=== PATIENT | female | born 1990 | race African-American/Black ===

== ENCOUNTER 2016-08-28 15:25 | Emergency (ER) | payer MEDICAID ==
[~2016-08-28] VITALS: Ht 167.6 cm; Wt 60.5 kg
[2016-08-28] MEDS ORDERED: SODIUM CHLORIDE FLUSH 10ML SYR IVF ONE (16:00)
[2016-08-28 16:24] LABS: ASPARTATE AMINO TRANSFERASE 21 U/L (15-37); BLOOD UREA NITROGEN 10 mg/dL (7-18)
[2016-08-28 16:49] LABS: HCG UR OBC PASS
[2016-08-28 16:51] LABS: PATH.CAST-FLAG NOT PRESENT; SPERM-FLAG NOT PRESENT; SRC-FLAG NOT PRESENT; XTAL-FLAG NOT PRESENT; YLC-FLAG NOT PRESENT
[2016-08-28 16:55] VITALS: BP 107/77
== END 2016-08-28 17:58 | disposition home or self-care (01) ==
LOC: ED 15:49
DX: K80.20 Calculus of gallbladder without cholecystitis without obstruction (principal); R10.84 Generalized abdominal pain
CPT/HCPCS: 36415; 76700; 80053; 81001; 81025; 83690; 85025; 87086; 99285

== ENCOUNTER 2016-09-22 11:43 | Day surgery (SDC) | payer MEDICAID ==
[~2016-09-22] VITALS: Ht 167.6 cm; Wt 60.9 kg
[~2016-09-22 11:43] MED LIST: CEFAZOLIN 1,000 MG ONE; DEXAMETHASONE 4 MG/ML, 1ML ONE; GLYCOPYRROLATE 0.2MG/1ML ONE; IBUP200T5 PO; KETOROLAC 30 MG/1 ML ONE; NEOSTIGMINE 1 MG/ML, 10ML ONE; ONDANSETRON 2MG/ML, 2ML ONE; PROPOFOL 10 MG/ML, 20ML ONE; ROCURONIUM 10 MG/ML ONE
[2016-09-22 12:32] VITALS: BP 111/76
[2016-09-22 12:41] LABS: HCG UR OBC PASS
[2016-09-22] MEDS ORDERED: LACTATED RINGERS 1,000 ML IV SCH (12:46)
[2016-09-22] MEDS ORDERED: INDOCYANINE GREEN 25 MG VIAL ONE (13:03)
[2016-09-22] MEDS ORDERED: BUPIVACAINE/PF-EPI 0.5% 1:200K ONE (13:17)
[2016-09-22] MEDS ORDERED: MIDAZOLAM 1 MG/ML, 2ML ONE (13:22)
[2016-09-22] MEDS ORDERED: FENTANYL PF 250 MCG/5ML ONE (13:22)
[2016-09-22] MEDS ORDERED: INDOCYANINE GREEN 25 MG VIAL IVPush ONE (13:30)
[2016-09-22] MEDS ORDERED: METOPROLOL 1 MG/ML, 5ML IV PRN (14:00)
[2016-09-22] MEDS ORDERED: hydrALAzine 20 MG/ML, 1ML IV PRN (14:00)
[2016-09-22] MEDS ORDERED: ALBUTEROL SULFATE 2.5 MG/3 ML NPPB PRN (14:00)
[2016-09-22] MEDS ORDERED: ONDANSETRON 2MG/ML, 2ML IVPush PRN ×2 (14:00→15:00)
[2016-09-22] MEDS ORDERED: EPHEDRINE 50 MG/ML, 1ML IVPush PRN (14:00)
[2016-09-22] MEDS ORDERED: ACETAMINOPHEN 325 MG TABLET PO PRN (14:00)
[2016-09-22] MEDS ORDERED: LABETALOL 5MG/ML, 20ML IV PRN (14:00)
[2016-09-22] MEDS ORDERED: MEPERIDINE/PF 25MG/0.5ML IVPush PRN (14:00)
[2016-09-22] MEDS ORDERED: KETOROLAC 30 MG/1 ML IVPush PRN (15:00)
[2016-09-22] MEDS ORDERED: morphine SULFATE 10 MG/ML, 1ML IVPush PRN (15:00)
[2016-09-22] MEDS ORDERED: FENTANYL PF 100 MCG/2ML ONE (15:02)
[2016-09-22] MEDS ORDERED: OXYcodone 5 MG/5 ML ORAL.SOL UDC ONE ×2 (15:02→15:51)
[2016-09-22] MEDS: FENTANYL PF 100 MCG/2ML IV PRN ×2 (15:04→15:09)
[2016-09-22] MEDS: OXYcodone 5 MG/5 ML ORAL.SOL UDC PO PRN ×2 (15:07→15:52)
[2016-09-22] MEDS ORDERED: HYDROmorphone 1 MG/ML, 1ML ONE (15:23)
[2016-09-22] MEDS: HYDROmorphone 1 MG/ML, 1ML IV PRN ×2 (15:26→15:34)
[2016-09-22] MEDS ORDERED: ACETAMINOPHEN 325 MG TABLET ONE (16:07)
[2016-09-22] MEDS ORDERED: ACETAMINOPHEN 650 MG/20.3 ML UDC ONE (16:07)
== END 2016-09-22 18:20 | disposition home or self-care (01) ==
LOC: OUT 11:43
PROVIDERS: ATTEND Surgery
DX: K80.10 Calculus of gallbladder with chronic cholecystitis without obstruction (principal)
CPT/HCPCS: 47562; 81025; 88304; J0690; J1100; J1170; J1885; J2250; J2405; J2704; J2710; J3010; J3490; J7120; S2900

== ENCOUNTER 2018-01-27 11:52 | Emergency (ER) | payer MEDICAID ==
[~2018-01-27] VITALS: Ht 167.6 cm; Wt 63.3 kg
[~2018-01-27 11:52] MED LIST changes: -CEFAZOLIN 1,000 MG ONE; -DEXAMETHASONE 4 MG/ML, 1ML ONE; -GLYCOPYRROLATE 0.2MG/1ML ONE; +IBUP-1484 PO; -IBUP200T5 PO; -KETOROLAC 30 MG/1 ML ONE; -NEOSTIGMINE 1 MG/ML, 10ML ONE; -ONDANSETRON 2MG/ML, 2ML ONE; -PROPOFOL 10 MG/ML, 20ML ONE; -ROCURONIUM 10 MG/ML ONE
[2018-01-27] MEDS ORDERED: TRAZ-136 PO (13:19)
[2018-01-27 14:03] VITALS: BP 110/76
== END 2018-01-27 14:05 | disposition home or self-care (01) ==
LOC: ED 13:45
DX: R07.89 Other chest pain (principal); F41.1 Generalized anxiety disorder; F32.9 Major depressive disorder, single episode, unspecified
CPT/HCPCS: 71045; 93005; 99284

== ENCOUNTER 2018-03-27 06:22 | Emergency (ER) | payer MEDICAID ==
[~2018-03-27] VITALS: Ht 160 cm; Wt 63.0 kg
[~2018-03-27 06:22] MED LIST changes: +TRAZ-136 PO
[2018-03-27 06:25] VITALS: BP 101/58
[2018-03-27] MEDS ORDERED: ONDANSETRON ODT 4 MG ONE (06:43)
[2018-03-27] MEDS ORDERED: IBUPROFEN 200 MG TABLET ONE (06:44)
[2018-03-27] MEDS ORDERED: ACETAMINOPHEN 325 MG TABLET ONE (06:44)
[2018-03-27] MEDS ORDERED: ACETAMINOPHEN 325 MG TABLET PO ONE (07:00)
[2018-03-27] MEDS ORDERED: IBUPROFEN 200 MG TABLET PO ONE (07:00)
[2018-03-27] MEDS ORDERED: ONDANSETRON ODT 4 MG PO ONE (07:00)
[2018-03-27 07:22] LABS: RAPID INFLUENZA A Negative (Negative); RAPID INFLUENZA B Negative (Negative)
== END 2018-03-27 07:44 | disposition home or self-care (01) ==
LOC: ED 07:37
DX: B34.9 Viral infection, unspecified (principal); F32.9 Major depressive disorder, single episode, unspecified
CPT/HCPCS: 87400; 99284; Q0162

== ENCOUNTER 2019-05-20 18:27 | Emergency (ER) | payer MEDICAID, OTHER ==
[~2019-05-20] VITALS: Ht 167.6 cm; Wt 69.3 kg
[~2019-05-20 18:27] MED LIST changes: -IBUP-1484 PO; +IBUP-1902 PO; -TRAZ-136 PO; +TRAZ50TA66 PO
[2019-05-20 18:44] VITALS: BP 136/104
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
--- NOTE | 2019-05-20 19:36 | NUR ---
PT C/O NAUSEA, CONSTIPATION, LOSS OF APPETITE OVER LAST COUPLE WEEKS. PT HAD IMPLANTED CONTROL REMOVED TWO WEEKS AGO FOR IT NOT MAKING HER FEEL GOOD. CONTROL IN PLACE FOR 3 YEARS. CONNECTED TO MONITORING. CALL LIGHT IN REACH. MD AT BEDSIDE FOR ASSESSMENT.
--- NOTE | 2019-05-20 19:52 | NUR ---
PT AMBULATED TO RESTROOM WITH STEADY GAIT TO PROVIDE URINE SAMPLE. UA COLLECTED AND SENT TO LAB.
[2019-05-20 20:00] LABS: MICROSCOPIC NOT IND
[2019-05-20 20:05] LABS: CULTURE INDICATED? NO
[2019-05-20 20:13] LABS: MEAN CORPUSCULAR HEMOGLOBIN 29.9 pg (27.0-34.8); MEAN CORPUSCULAR HGB CONC 33.1 g/dL (32.4-35.8); MEAN CORPUSCULAR VOLUME 90.2 fL (80-100); MEAN PLATELET VOLUME 8.9 fL (7.4-10.4); PLATELET COUNT 168 x10^3/uL (130-400); RED BLOOD COUNT 4.53 x10^6/uL (3.82-5.3); RED CELL DISTRIBUTION WIDTH 13.3 % (9.6-15.2)
[2019-05-20 20:17] LABS: ALANINE AMINOTRANSFERASE 32 U/L (12-78); ALBUMIN 2.9 g/dL (3.4-5.0); ANION GAP 7 mmol/L (5-15); CALCIUM 8.8 mg/dL (8.5-10.1); CHLORIDE 109 mmol/L (98-107); CREATININE 0.85 mg/dL (0.55-1.02)
[2019-05-20 20:28] LABS: ALKALINE PHOSPHATASE 76 U/L (45-117); BASOPHILS # (AUTO) 0.02 x10^3/uL (0-0.1); BASOPHILS % (AUTO) 0 % (0-1); BILIRUBIN,TOTAL 0.5 mg/dL (0.2-1.0); EOSINOPHILS # (AUTO) 0.17 x10^3/uL (0-0.4); EOSINOPHILS % (AUTO) 3 % (1-7); FREE T4 (FREE THYROXINE) 1.17 ng/dL (0.76-1.46); LYMPHOCYTES # (AUTO) 1.44 x10^3/uL (1-3.4); LYMPHOCYTES % (AUTO) 23 % (22-44); MD SCAN; MONOCYTES % (AUTO) 11 % (2-9); NEUTROPHILS # (AUTO) 3.82 x10^3/uL (1.8-6.8); NEUTROPHILS % (AUTO) 62 % (42-75); TOTAL PROTEIN 6.6 g/dL (6.4-8.2)
--- NOTE | 2019-05-20 20:38 | NUR ---
ALL RESULTS ARE BACK AT THIS TIME. CHART UP FOR RECHECK.
== END 2019-05-20 22:12 | disposition home or self-care (01) ==
LOC: ED 20:56
DX: G47.00 Insomnia, unspecified (principal); R11.0 Nausea; Z90.49 Acquired absence of other specified parts of digestive tract
CPT/HCPCS: 36415; 80053; 81003; 81025; 84439; 84443; 85025; 99283

== ENCOUNTER 2019-11-26 12:38 | Emergency (ER) | payer MEDICAID ==
[~2019-11-26] VITALS: Ht 167.6 cm; Wt 68.9 kg
--- NOTE | 2019-11-26 13:06 | NUR ---
Assumed care of patient. C/O anxiety x 5 days. Will continue to monitor.
[2019-11-26] MEDS ORDERED: LORazepam 1MG TABLET PO ONE (13:30)
[2019-11-26] MEDS ORDERED: LORazepam 1MG TABLET ONE (13:45)
[2019-11-26 13:46] LABS: BASOPHILS # (AUTO) 0.01 x10^3/uL (0-0.1); BASOPHILS % (AUTO) 0 % (0-1); EOSINOPHILS # (AUTO) 0.02 x10^3/uL (0-0.4); EOSINOPHILS % (AUTO) 0 % (1-7); LYMPHOCYTES # (AUTO) 1.89 x10^3/uL (1-3.4); LYMPHOCYTES % (AUTO) 29 % (22-44); MD NO; MEAN CORPUSCULAR HEMOGLOBIN 29.3 pg (27.0-34.8); MEAN CORPUSCULAR HGB CONC 32.1 g/dL (32.4-35.8); MEAN PLATELET VOLUME 8.8 fL (7.4-10.4); MONOCYTES # (AUTO) 0.43 x10^3/uL (0.2-0.8); MONOCYTES % (AUTO) 7 % (2-9); NEUTROPHILS # (AUTO) 4.18 x10^3/uL (1.8-6.8); NEUTROPHILS % (AUTO) 64 % (42-75); PLATELET COUNT 228 x10^3/uL (130-400); RED BLOOD COUNT 4.94 x10^6/uL (3.82-5.3); RED CELL DISTRIBUTION WIDTH 13.4 % (9.6-15.2)
[2019-11-26 13:47] VITALS: BP 147/81
[2019-11-26 13:51] LABS: ALANINE AMINOTRANSFERASE 133 U/L (12-78); ALBUMIN 3.9 g/dL (3.4-5.0); ANION GAP 6 mmol/L (5-15); CALCIUM 9.9 mg/dL (8.5-10.1); CHLORIDE 111 mmol/L (98-107); CREATININE 0.98 mg/dL (0.55-1.02)
--- NOTE | 2019-11-26 13:53 | NUR ---
Meds admin. No other needs.
[2019-11-26 13:55] LABS: ALKALINE PHOSPHATASE 136 U/L (45-117); BILIRUBIN,TOTAL 0.6 mg/dL (0.2-1.0); TOTAL PROTEIN 8.3 g/dL (6.4-8.2); TROPONIN I < 0.015 ng/mL (0.000-0.045)
--- NOTE | 2019-11-26 15:05 | NUR ---
Reports decreased anxiety.
--- NOTE | 2019-11-26 15:33 | NUR ---
Patient/Caregiver given discharge instructions and they have confirmed that they understand the instructions. Patient ambulatory with steady gait.
== END 2019-11-26 15:36 | disposition home or self-care (01) ==
LOC: ED 14:20
DX: F41.1 Generalized anxiety disorder (principal); R00.0 Tachycardia, unspecified; I51.7 Cardiomegaly; R07.9 Chest pain, unspecified; R94.31 Abnormal electrocardiogram [ECG] [EKG]; Z90.49 Acquired absence of other specified parts of digestive tract
CPT/HCPCS: 36415; 71045; 80053; 84484; 84703; 85025; 93005; 99285

== ENCOUNTER 2020-03-11 09:45 | Emergency (ER) | payer MEDICAID ==
[~2020-03-11] VITALS: Ht 167.6 cm; Wt 69.6 kg
[2020-03-11 09:47] VITALS: BP 135/78
[2020-03-11] MEDS ORDERED: HYDROcodone/APAP 5/325 TABLET PO ONE (12:00)
[2020-03-11] MEDS ORDERED: HYDROcodone/APAP 5/325 TABLET ONE (12:01)
== END 2020-03-11 13:13 | disposition home or self-care (01) ==
LOC: ED 12:15
DX: K02.9 Dental caries, unspecified (principal); R51.9 Headache, unspecified; R68.84 Jaw pain; Z90.49 Acquired absence of other specified parts of digestive tract
CPT/HCPCS: 99283

== ENCOUNTER 2020-07-19 19:28 | Emergency (ER) | payer MEDICAID ==
[~2020-07-19] VITALS: Ht 167.6 cm; Wt 71.0 kg
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
--- NOTE | 2020-07-19 22:16 | NUR ---
Lace-up splint placed by residential service technician, + CSM Patient/Caregiver given discharge instructions and they have confirmed that they understand the instructions. Patient ambulatory with steady gait. Rx reviewed with patient. Ice pack sent home with patient.
[2020-07-19 22:17] VITALS: BP 100/66
== END 2020-07-19 22:20 | disposition home or self-care (01) ==
LOC: ED 20:27
DX: S60.222A Contusion of left hand, initial encounter (principal); X58.XXXA Exposure to other specified factors, initial encounter; Y93.89 Activity, other specified; Y92.009 Unspecified place in unspecified non-institutional (private) residence as the place of occurrence of the external cause; Y99.8 Other external cause status
CPT/HCPCS: 29125; 99283

== ENCOUNTER 2020-10-03 20:39 | Emergency (ER) | payer MEDICAID, OTHER ==
[~2020-10-03] VITALS: Ht 167.6 cm; Wt 73.8 kg
--- NOTE | 2020-10-03 21:00 | NUR ---
gil rn: c collar applied
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
--- NOTE | 2020-10-03 22:13 | NUR ---
PT RESTING COMFORTABLY ON GURNEY, DENIES NEEDS AT THIS TIME
[2020-10-03 23:08] VITALS: BP 117/64
--- NOTE | 2020-10-03 23:23 | NUR ---
Patient given discharge instructions and they have confirmed that they understand the instructions. Patient ambulatory with steady gait.
== END 2020-10-03 23:26 | disposition home or self-care (01) ==
LOC: ED 23:20
DX: S06.0X0A Concussion without loss of consciousness, initial encounter (principal); M25.562 Pain in left knee; M54.2 Cervicalgia; R07.89 Other chest pain; Z90.49 Acquired absence of other specified parts of digestive tract; V47.5XXA Car driver injured in collision with fixed or stationary object in traffic accident, initial encounter; Y93.89 Activity, other specified; Y92.410 Unspecified street and highway as the place of occurrence of the external cause; Y99.8 Other external cause status
CPT/HCPCS: 70450; 71045; 72125; 99285

== ENCOUNTER 2020-12-18 15:16 | Emergency (ER) | payer MEDICAID, OTHER ==
[~2020-12-18] VITALS: Ht 167.6 cm; Wt 71.8 kg
[2020-12-18 15:19] VITALS: BP 118/81
== END 2020-12-18 16:43 | disposition home or self-care (01) ==
LOC: ED 15:46
DX: H00.015 Hordeolum externum left lower eyelid (principal); R51.9 Headache, unspecified; Z90.49 Acquired absence of other specified parts of digestive tract
CPT/HCPCS: 99283

== ENCOUNTER 2021-01-03 20:22 | Emergency (ER) | payer MEDICAID ==
[~2021-01-03] VITALS: Ht 167.6 cm; Wt 73.3 kg
[2021-01-03 20:33] VITALS: BP 117/70
[2021-01-03] MEDS ORDERED: PROPARACAINE OPHTH 0.5%, 15ML ONE (21:06)
[2021-01-03] MEDS ORDERED: FLUORESCEIN OPHTHALMIC 1 MG STRIP ONE (21:07)
--- NOTE | 2021-01-03 21:17 | NUR ---
Pt states that vision is blurry. When conducting VAs pt got first letter right then stated "the rest is blurry I cant read that".
[2021-01-03] MEDS ORDERED: FLUORESCEIN OPHTHALMIC 1 MG STRIP EACHEYE ONE (21:30)
[2021-01-03] MEDS ORDERED: PROPARACAINE OPHTH 0.5%, 15ML EACHEYE ONE (21:30)
[2021-01-03] MEDS ORDERED: OFLOXACIN OPHTH 0.3%, 5ML RIGHTEYE SCH (22:00)
== END 2021-01-03 22:07 | disposition home or self-care (01) ==
LOC: ED 21:34
DX: H00.025 Hordeolum internum left lower eyelid (principal); Z90.49 Acquired absence of other specified parts of digestive tract
CPT/HCPCS: 99283